=== PATIENT | female | born 1975 | race Two or more races ===

== ENCOUNTER 2024-03-30 13:30 | Outpatient (RCR) | payer MEDICAID, SELFPAY ==
--- NOTE | 2024-03-16 13:35 | PT.OIERPT ---
PT OP Initial Eval Patient Information Outpatient Physical Therapy Treatment Date: 03/16/24 Visit Reasons: Pain in right shoulder Medical Diagnosis: M25.511 Treatment Dx #1: R shoulder pain Start of Care: 03/16/24 Date of Onset: 1 yr ago Smoking Status Smoking Status: Never smoker Initial Assessment Subjective: Pt is 48 yr old setswana speaking female who reports R shoulder pain after lifting her mother in law to transfer her 1 yr ago. When she wakes up pain limits reaching behind her back. 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 PMH: none reported Imaging: none Pt goal: to get rid of the pain Objective: R shoulder ArOM: Strength: FF: 90 deg 3-/5 ABD: 80 deg with pain 3-/5 ER: 90 deg with pain HBB: to R glute with pain Empty can: positive Painful arc: positive Khan Dagoberto: positive Assessment: Pt presents with decreased ROM and strength in all planes limited by pain consistent with RC impingement/tendinopathy, possible tear. Pt requires skilled therapy in order to decrease pain and improve ROM and strength and has fair rehab potential. If ssx don't resolve PT recommends further diagnostic imaging such as MRI. Short Term and Assisted Goals 1. Ind with HEP 2. Improved AROM into all planes to at least 130 deg FF and abduction 3. Pt will reach OH with <=3/10 R shoulder pain 4. Improved strength into all planes to at least 4-/5 Treatment Plan 1. Manual therapy ? 2. Therex ? 3. Modalities as indicated, moist heat, ice, estim Frequency and Duration: 1-2x a week for up to 12 visits Certification Dates: 03/16/24 to 06/12/24 Procedure Charges OP PT Eval Mod Complex 30 minutes: Yes
--- NOTE | 2024-03-23 14:40 | PT.ODAYNRPT ---
PT Outpatient Daily Note OP Daily Note Outpatient Physical Therapy Treatment Date: 03/23/24 Visit Reasons: Pain in right shoulder Subjective: Pt reports pain and stiffness in R shoulder. Objective: Please see flow sheet for ther ex list. Assessment: Interventions completed with minimal pain and muscle fatigue. Plan: Continue with POC. Length of Time (minutes) of Treatment: 30 Minutes Procedure Charges Therapeutic Exercise 30 minutes: Yes
--- NOTE | 2024-03-30 14:29 | PT.ODAYNRPT ---
PT Outpatient Daily Note OP Daily Note Outpatient Physical Therapy Treatment Date: 03/30/24 Visit Reasons: Pain in right shoulder Subjective: Pt reports shoulder is doing ok, continues to have pain with elevating arm. Objective: Please see flow sheet for ther ex list. Assessment: Added isometric shoulder exercises, pt completed with minimal muscle fatigue. Plan: Continue with POC. Length of Time (minutes) of Treatment: 30 Minutes Procedure Charges Therapeutic Exercise 30 minutes: Yes
== END 2024-04-13 23:59 | disposition home or self-care (01) ==
LOC: CPTX 13:30
PROVIDERS: PCP Family Medicine; Referring Provider Family Medicine; Visit Provider Family Medicine
DX: M25.511 Pain in right shoulder (principal)
CPT/HCPCS: 97110; 97162

== ENCOUNTER 2024-04-15 13:23 | Outpatient (RCR) | payer MEDICAID, SELFPAY ==
--- NOTE | 2024-04-15 14:15 | PT.ODAYNRPT ---
PT Outpatient Daily Note OP Daily Note Outpatient Physical Therapy Treatment Date: 04/15/24 Visit Reasons: Pain in RT shoulder Subjective: Pt reports noticing progress with shoulder. Objective: Please see flow sheet for ther ex list. Assessment: Pt presents in clinic with decrease c.o pain during PT session allowing for progression of interventions. Plan: Continue with POC. Length of Time (minutes) of Treatment: 30 Minutes Procedure Charges Therapeutic Exercise 30 minutes: Yes
== END 2024-05-14 23:59 | disposition home or self-care (01) ==
LOC: CPTX 13:23
PROVIDERS: PCP Family Medicine; Referring Provider Family Medicine; Visit Provider Family Medicine
DX: M25.511 Pain in right shoulder (principal)
CPT/HCPCS: 97110

== ENCOUNTER 2025-01-03 08:09 | Emergency (ER) | payer MEDICAID, SELFPAY ==
[2025-01-03 08:10] VITALS: BMI 33.9
[2025-01-03 08:17] VITALS: BP 176/89; PULSE 95; RESP 18; TEMP 36.4; O2SAT 97
--- NOTE | 2025-01-03 08:21 | PD.EDBACK ---
ED Back Injury Pain RME/HPI General Chief Complaint: Back Pain/Injury Stated Complaint: RIGHT LOWER BACK PAIN SINCE SAT Time Seen by Provider: 01/03/25 08:11 Source: patient Arrival date/time: 01/03/25 08:09 Mode of arrival: ambulatory Limitations: no limitations Related Data Previous Rx's ?Medication ?Instructions ?Recorded cyclobenzaprine 10 mg tablet 10 mg PO Q8H PRN muscle spasm #20 06/01/18 tabs ibuprofen 600 mg tablet 600 mg PO Q6H #60 tabs 06/01/18 Allergies Allergy/AdvReac Type Severity Reaction Status Date / Time NKA Allergy Unknown Uncoded 01/03/25 08:12 Review of Systems Review of Systems Systems Reviewed: All systems reviewed, normal except as documented Constitutional Constitutional: Reports system reviewed and no additional complaints, except as documented, Denies fatigue, Denies fever(s), Denies headache(s) and Denies weakness Eyes Eyes: Reports system reviewed and no additional complaints, except as documented, Denies blurry vision and Denies change in vision ENT Ears, Nose, Mouth, and Throat: Reports system reviewed and no additional complaints, except as documented, Denies otalgia, Denies headache(s), Denies nasal congestion, Denies throat swelling and Denies vertigo Cardiovascular Cardiovascular: Reports system reviewed and no additional complaints, except as documented, Denies chest pain, Denies dyspnea and Denies dyspnea on exertion Respiratory Respiratory: Reports system reviewed and no additional complaints, except as documented, Denies chest congestion, Denies cough, Denies dyspnea, Denies dyspnea on exertion and Denies wheezing Gastrointestinal Gastrointestinal: Reports system reviewed and no additional complaints, except as documented, Denies abdominal pain, Denies cramping, Denies nausea and Denies vomiting Genitourinary Genitourinary: Reports system reviewed and no additional complaints, except as documented Musculoskeletal Musculoskeletal: Reports system reviewed and no additional complaints, except as documented and Reports back pain Integumentary/Breasts Skin/Breast: Reports system reviewed and no additional complaints, except as documented and Denies wounds Neurologic Neurologic: Reports system reviewed and no additional complaints, except as documented, Denies confusion, Denies headache(s), Denies lack of coordination, Denies vertigo and Denies weakness Psychiatric Psychiatric: Reports system reviewed and no additional complaints, except as documented, Denies anxiety, Denies confusion, Denies depression, Denies paranoia, Denies suicidal ideation and Denies tactile hallucinations Endocrine Endocrine: Reports system reviewed and no additional complaints, except as documented and Denies fatigue Hematologic/Lymphatic Hematologic/Lymphatic: Reports system reviewed and no additional complaints, except as documented and Denies lymphadenopathy Allergic/Immunologic Allergic/Immunologic: Reports system reviewed and no additional complaints, except as documented, Denies throat swelling, Denies urticaria and Denies wheezing Past Medical History Past Medical History CARDIAC: Negative Congestive Heart Failure RESPIRATORY: Negative Chronic Obstructive Pulmonary Disease (COPD) GENITOURINARY: Negative Renal Disease ENDOCRINE: Negative Diabetes Mellitus Type 1 or Diabetes Mellitus Type 2 Social History SMOKING STATUS: Never smoker ED Exam General Limitations: Present no limitations General appearance: Present alert and in no apparent distress Head Head exam: Present atraumatic Eye Eye exam: Present normal appearance, PERRL and EOMI ENT ENT exam: Present normal exam, normal oropharynx and mucous membranes moist Neck Neck exam: Present normal inspection, full ROM and trachea midline Chest Chest inspection: Present normal inspection and symmetric chest wall rise Respiratory Respiratory exam: Present normal lung sounds bilaterally Cardiovascular Cardiovascular exam: Present regular rate, normal rhythm and normal heart sounds Abdominal Exam Abdominal exam: Present soft and normal bowel sounds Extremities Exam Extremities exam: Present normal inspection and full ROM Back Exam Back exam: Present normal inspection and full ROM Back 1 view image:  1. Lumbar back pain with palpation Neurological Exam Neurological exam: Present alert, oriented X3 and CN II-XII intact Psychiatric Psychiatric exam: Present normal affect and normal mood Skin Skin exam: Present warm, dry, intact and normal color Course Quality Measures none Orders Category Date Time Status Ketorolac Inj [Toradol Inj] Med 01/03/25 08:20 Once 30 mg IM X1 ONE Vital Signs Vital signs: Vital Signs Temperature 97.6 F 01/03/25 08:17 Pulse Rate 95 01/03/25 08:17 Respiratory Rate 18 01/03/25 08:17 Blood Pressure 176/89 H 01/03/25 08:17 Pulse Oximetry (%) 97 01/03/25 08:17 Oxygen Delivery Method Room Air 01/03/25 08:17 Back Pain / Injury MDM Narrative MDM Narrative:: 49-year-old female with no known medical history presents to the emergency room with a chief complaint of lower lumbar back pain x 2 days. Patient denies any trauma. Patient is hemodynamically stable and in no apparent distress Physical examination shows tenderness and pain with palpation of the lumbar back. The patient denies any falls, heavy lifting. The patient denies any numbness to the lower extremities or any loss of bowel or bladder function. The patient is able to ambulate and has a normal steady gait. Patient states she has this pain intermittently. Medication was given to the patient and the patient was educated to follow-up with her primary care provider Patient was discharged and educated to follow-up with primary care provider in the next 24 to 48 hours and return to the emergency room for any evidence of worsening signs or symptoms Patient data External records reviewed:: [facility] previous records Clinical information provided by:: patient Social determinants that could affect healthcare access:: none Patient has the following chronic illnesses:: No chronic illness How is presenting disease/condition affected by chronic disease/condition?: no chronic disease Evaluation data The following diagnostics were reviewed and interpreted by me:: lab results and radiology exam(s) Lab and/or radiology exams considered but not ordered:: Labs and radiology exams considered and ordered Interpretation Summary: N/A Medications / Prescriptions Medications or Prescriptions considered but not ordered:: Medication given Medication administrations:: Medication Administration History Ketorolac Tromethamine (Ketorolac Inj 60 Mg/2 Ml Vial) 30 mg IM X1 ONE Stop: 01/03/25 08:21 Medication given Consultations Consultation(s) initiated? (list below): No Diagnosis Differential diagnosis back pain/injury: strain of lumbar region, thoracic back pain and discitis Most likely diagnosis given after review of the tests above:: Strain of lumbar region Admission Indicated Admission indicated?: not indicated Admission Request Was there a request for admission?: No Disposition Plan Disposition Plan: Discharge Discharge Attestation Discharge Attestation: The patient and all family members were given an opportunity to ask questions and understood the discharge instructions. Discharge instructions specifically effects, indications for sooner follow up or return to the emergency department, and the expected course of current diagnosis. Patient condition: Stable Discharge Plan Plan Patient Disposition: HOME (Self Care) Discharge Disposition comment: Stable Prescriptions/Referrals Prescriptions/Med Rec: No Action cyclobenzaprine 10 mg tablet 10 mg PO Q8H PRN (Reason: muscle spasm) Qty: 20 0RF ibuprofen 600 mg tablet 600 mg PO Q6H Qty: 60 0RF Problem List Clinical Impression: Strain of lumbar region Patient/Caregiver Discharge Instructions Education Materials: ED Back Sprain/Strain Additional Instructions: Please follow-up with your primary care provider in the next 24 to 48 hours For any evidence of worsening signs or symptoms please return to emergency room immediately Print Language: Telugu Stand Alone Forms: Mikaela Award Info., Patient Portal Info Letter PA/SUBCONTRACT MANAGER Supervising Physician PA/SUBCONTRACT MANAGER Supervising Physician: Dr. La
[2025-01-03] MEDS: KETOROLAC INJ 60 MG/2 ML VIAL 30 MG IM (09:17)
== END 2025-01-03 09:22 | disposition home or self-care (01) ==
LOC: SERX 08:48
PROVIDERS: Emergency Provider Emergency Medicine
DX: S39.012A Strain of muscle, fascia and tendon of lower back, initial encounter (principal); X58.XXXA Exposure to other specified factors, initial encounter
CPT/HCPCS: 96372; 99283; J1885